=== PATIENT | female | born 1960 | race Caucasian/White ===

== ENCOUNTER 2022-03-09 19:31 | Emergency (ER) | payer OTHER, SELFPAY ==
[2022-03-09 19:45] VITALS: BP 150/79; PULSE 70; RESP 16; TEMP 36.9; O2SAT 98
--- NOTE | 2022-03-09 20:00 | ED.EYEPROB ---
HPI - Eye Problem General Chief complaint: Eye Problems Stated complaint: Left Eye Irritation Time Seen by Provider: 03/09/22 20:00 Source: patient, RN notes reviewed and old records reviewed Mode of arrival: ambulatory Limitations: no limitations History of Present Illness HPI Narrative: 61-year-old female presents to [facility] with complaints of left eye upper lid swelling. States it started approximately 3 days ago. Has been using some type of eyedrop. Describes it as irritated and itchy. Denies any change in vision or blurry vision. Denies any trauma. MD chief complaint: eye pain and eye redness Related Data Home Medications Medication Instructions Recorded Confirmed atorvastatin 80 mg tablet 80 mg DIRECTED 03/09/22 03/09/22 clopidogrel 75 mg tablet 75 mg DIRECTED 03/09/22 03/09/22 empagliflozin 10 mg tablet 10 mg DIRECTED 03/09/22 03/09/22 (Jardiance) losartan 25 mg tablet 25 mg DIRECTED 03/09/22 03/09/22 metoprolol tartrate 25 mg tablet 25 mg DIRECTED 03/09/22 03/09/22 nitroglycerin 0.4 mg sublingual 0.4 mg DIRECTED 03/09/22 03/09/22 tablet Allergies Allergy/AdvReac Type Severity Reaction Status Date / Time Tetanus Vaccines and Toxoid Allergy Unknown HEAD Verified 03/09/22 20:09 PRESSURE tetracycline Allergy Unknown Nausea Verified 03/09/22 20:09 erythromycin base AdvReac Mild Nausea Verified 03/09/22 20:09 Review of Systems Review of Systems: All systems reviewed & are unremarkable except as noted in HPI and below Constitutional: Constitutional: Reports no additional constitutional complaints, Denies chills and Denies fever(s) Eyes: Eyes: Reports as per HPI ENT: Reports system reviewed and no additional complaints, except as documented Cardiovascular: Cardiovascular: Reports no additional cardiovascular complaints Respiratory: Respiratory: Reports no additional respiratory complaints Gastrointestinal: Gastrointestinal: Reports no additional gastrointestinal complaints Musculoskeletal: Musculoskeletal: Reports no additional musculoskeletal complaints Integumentary/Breasts: Skin/Breast: Reports system reviewed and no additional complaints, except as docu Neurologic: Reports system reviewed and no additional complaints, except as documented Psychiatric: Psychiatric: Reports no additional psychiatric complaints Allergic/Immunologic: Allergic/Immunologic: Reports no additional allergic/immunologic complaints [facility], [facility]1983 Family History Family History Father Hypertension Family history of diabetes mellitus in first degree relative Sibling Family history of diabetes mellitus in first degree relative Family history of coronary artery disease Other Family history of malignant neoplasm of uterus Social History Social History Alcohol intake: current Comments At the time of my signature, I reviewed and agree with the nursing past medical, surgical, social, and family history. There is no relevant family history pertinent to the patient complaint. Exam Const: General: healthy appearing, no acute distress and alert Nutritional Appearance: well nourished Orientation/consciousness: patient oriented x3 Limitations: no limitations HENMT: Head: normal to inspection Ears: external ears normal, TM's normal bilaterally and EAC's normal Eyes: General: appearance normal, both eyes and all related structures Visual Marks: normal visual marks by confrontation Alignment and Position: alignment normal and position normal Eyelids: eyelid abnormality left upper eyelid inflamed cyst internal lid, erythema, lid margins crusty/scaly, swelling and tenderness; without lacerations Conjunctivae: conjunctival abnormality left discharge purulent; Negative for conjunctival icterus, without chemosis and without injection Pupils: Equal, round and reactive pupils present Neck: Ne
== END 2022-03-09 20:17 | disposition home or self-care (01) ==
PROVIDERS: Emergency Provider Nurse Practitioner
DX: H00.024 Hordeolum internum left upper eyelid (principal); E11.9 Type 2 diabetes mellitus without complications; Z95.5 Presence of coronary angioplasty implant and graft
CPT/HCPCS: 99213; G0463